=== PATIENT | female | born 1995 | race Caucasian/White ===

== ENCOUNTER 2022-02-03 21:45 | Emergency (ER) | payer OTHER ==
[2022-02-04] MEDS ORDERED: ONDANSETRON ODT4 MG SL (02:26)
[2022-02-04] MEDS ORDERED: IBUPROFEN800 MG PO (02:26)
== END 2022-02-04 02:38 | disposition home or self-care (01) ==
LOC: ER1 21:45
DX: S06.0X0A Concussion without loss of consciousness, initial encounter (principal); S16.1XXA Strain of muscle, fascia and tendon at neck level, initial encounter; S63.501A Unspecified sprain of right wrist, initial encounter; Z23 Encounter for immunization; S60.221A Contusion of right hand, initial encounter; S80.811A Abrasion, right lower leg, initial encounter; W22.8XXA Striking against or struck by other objects, initial encounter; Y93.57 Activity, non-running track and field events
CPT/HCPCS: 70450; 72125; 73110; 73130; 90471; 90715; 99284